=== PATIENT | female | born 1980 ===

== ENCOUNTER 2018-02-22 09:56 | Emergency (ER) | payer SELFPAY ==
[2018-02-22 10:14] VITALS: BP 115/73; PULSE 87; RESP 18; TEMP 98.7; O2SAT 100
--- NOTE | 2018-02-22 10:47 | C.PDOC ---
History Of Present Illness 37 y/o female currently 7.5 weeks presents to ED for further evaluation of . Patient states she had an ultrasound on 02/19 that showed no cardiac activity. Patient reports mild suprapubic pain and denies fever, chills, dysuria, vaginal bleeding, back pain or any other complaints at this time. Time Seen by Provider: 02/22/18 10:37 Chief Complaint (Nursing): Medical Clearance History Per: Patient History/Exam Limitations: no limitations Onset/Duration Of Symptoms: Days Current Symptoms Are (Timing): Still Present Quality Of Discomfort: "Pain" Past Medical History Reviewed: Historical Data, Nursing Documentation, Vital Signs Vital Signs: Last Vital Signs Temp 98.7 F 02/22/18 10:12 Pulse 87 02/22/18 10:12 Resp 18 02/22/18 10:12 BP 115/73 02/22/18 10:12 Pulse Ox 100 02/22/18 10:12 - Medical History PMH: No Chronic Diseases Surgical History: No Surg Hx Family History: States: No Known Family Hx - Social History Hx Alcohol Use: No Hx Substance Use: No - Immunization History Hx Tetanus Toxoid Vaccination: No Hx Influenza Vaccination: No Hx Pneumococcal Vaccination: No Review Of Systems Constitutional: Negative for: Fever, Chills Gastrointestinal: Positive for: Abdominal Pain. Negative for: Nausea, Vomiting, Diarrhea Genitourinary: Negative for: Dysuria, Vaginal Bleeding Skin: Negative for: Rash Physical Exam - Physical Exam Appears: Non-toxic, No Acute Distress Skin: Warm, Dry, No Rash Head: Atraumatic, Normacephalic Eye(s): bilateral: Normal Inspection Oral Mucosa: Moist Neck: Normal ROM, Supple Cardiovascular: Rhythm Regular Respiratory: Normal Breath Sounds, No Rales, No Rhonchi, No Wheezing Gastrointestinal/Abdominal: Soft, No Tenderness, No Guarding, No Rebound Back: No CVA Tenderness Neurological/Psych: Oriented x3, Normal Speech, Normal Cognition ED Course And Treatment O2 Sat by Pulse Oximetry: 100 (RA) Pulse Ox Interpretation: Normal Medical Decision Making Medical Decision Making: Impression: missed AB Progress: 1053 spoke with [facility] Chan who reports patient has Missed AB. Per Dr. Randolph he requests to contact hospitalist OB for possible D&C. [address] Marty DYSON director of environmental services to discuss case and she states there is no emergency at this time, patient stable and can schedule elective D&C outpatient Dispo: Patient remained well with stable vital signs and in no distress. I explained to the patient results of her US and the plan for discharge and to schedule outpatient D&C if desired or opt for miscarriage at home. Patient understands and will follow up with clinic and also contact OB for procedure. Disposition Counseled Patient/Family Regarding: Diagnosis, Need For Followup - Disposition Referrals: Ricardo Aquino MD [Staff Provider] - [facility] [Outside] Disposition: HOME/ ROUTINE Disposition Time: 11:23 Condition: GOOD Additional Instructions: Your ultrasound shows you have missed and will need to contact an OB to schedule an elective D&C procedure outpatient. Please use [employer] service for any assistance in finding an OB in your area [phone]. You are also able to call any doctors on the list provided. Instructions: Miscarriage (DC) Forms: [employer] (Israeli) - POA Present On Arrival: None - Clinical Impression Clinical Impression: Missed - PA / BOTTOMING MACHINE OPERATOR / Resident Statement MD/DO has reviewed & agrees with the documentation as recorded. - Scribe Statement The provider has reviewed the documentation as recorded by the Nusratibjeniffer Amaya All medical record entries made by the Nusratibjeniffer were at my direction and personally dictated by me. I have reviewed the chart and agree that the record accurately reflects my personal performance of the history, physical exam, medical decision making, and the department course for this patient. I have also personally directed, reviewed, and agree with the discharge instructions and disposition.
== END 2018-02-22 11:30 | disposition home or self-care (01) ==
LOC: C.ER 09:56
DX: O02.1 Missed abortion (principal)

== ENCOUNTER 2018-03-05 09:59 | Emergency (ER) | payer SELFPAY ==
[2018-03-05 10:02] VITALS: BMI 23.8
[2018-03-05 10:04] VITALS: O2SAT 100
[2018-03-05 11:22] LABS: HCG,QUALITATIVE URINE POSITIVE (NEGATIVE)
[2018-03-05 11:24] LABS: SQUAMOUS EPITHIAL 12 /hpf (0-5); URINE BACTERIA RARE (<OCC); URINE BILIRUBIN NEGATIVE (NEGATIVE); URINE BLOOD 2+ (NEGATIVE); URINE CLARITY Hazy (Clear); URINE COLOR Yellow (YELLOW); URINE GLUCOSE (UA) NORMAL (Normal); URINE LEUKOCYTE ESTERASE TRACE Leu/uL (Negative); URINE PROTEIN NEGATIVE (NEGATIVE); URINE UROBILINOGEN NORMAL mg/dL (0.2-1.0)
--- NOTE | 2018-03-05 12:33 | C.PDOC ---
History Of Present Illness 37-year-old Ab2 female presents to the ED complaining of persistent vaginal bleeding. Patient states she was approximately ?8-10 weeks . She developed lower abdominal cramping and vaginal bleeding 2 weeks ago. Patient was seen here on 02/19/18 for similar symptoms, had bloodwork and US showing no heart tones. Today she noticed a large clot came out, prompting her to return to the ED. Denies any fever, dizziness, chest pain, SOB, nausea, or vomiting. She reports the bleeding otherwise has not been overly heavy. Time Seen by Provider: 03/05/18 10:34 Chief Complaint (Nursing): Female Genitourinary History Per: Patient History/Exam Limitations: no limitations Onset/Duration Of Symptoms: Days Current Symptoms Are (Timing): Still Present Abnormal Vaginal Bleeding: Yes : 7 Para: 4 Miscarriage: 2 Past Medical History Reviewed: Historical Data, Nursing Documentation, Vital Signs Vital Signs: Last Vital Signs Temp 97.4 F L 03/05/18 10:02 Pulse 79 03/05/18 10:02 Resp 16 03/05/18 10:02 BP 109/71 03/05/18 10:02 Pulse Ox 100 03/05/18 10:02 Family History: States: No Known Family Hx - Social History Hx Alcohol Use: No Hx Substance Use: No - Immunization History Hx Tetanus Toxoid Vaccination: No Hx Influenza Vaccination: No Hx Pneumococcal Vaccination: No Review Of Systems Except As Marked, All Systems Reviewed And Found Negative. Constitutional: Negative for: Fever, Chills, Weakness Respiratory: Negative for: Shortness of Breath Gastrointestinal: Negative for: Nausea, Vomiting, Diarrhea Genitourinary: Positive for: Vaginal Bleeding. Negative for: Dysuria, Frequency Skin: Negative for: Rash Neurological: Negative for: Dizziness Physical Exam - Physical Exam Appears: Non-toxic, No Acute Distress Skin: Warm, Dry, No Rash Head: Atraumatic, Normacephalic Eye(s): bilateral: Normal Inspection, PERRL, EOMI Oral Mucosa: Moist Neck: Normal ROM, Supple Chest: Symmetrical, No Tenderness Cardiovascular: Rhythm Regular, No Friction Rub, No Murmur Respiratory: Normal Breath Sounds, No Accessory Muscle Use, No Wheezing Gastrointestinal/Abdominal: Soft, No Tenderness, No Distention Back: Normal Inspection, No CVA Tenderness Extremity: Normal ROM, No Tenderness, No Swelling Extremity: Bilateral: Atraumatic, Normal Color And Temperature, Normal ROM Pulses: Left Dorsalis Pedis: Normal, Right Dorsalis Pedis: Normal Neurological/Psych: Oriented x3, Normal Speech, Normal Motor Gait: Steady ED Course And Treatment O2 Sat by Pulse Oximetry: 100 (RA) Pulse Ox Interpretation: Normal - CT Scan/US Transvaginal US Other Rad Studies (CT/US): Read By Radiologist, Radiology Report Reviewed CT/US Interpretation: Accession No. : [id number]. Patient Name / ID : ISI ESPOSITO S / [id number]. Exam Date : 03/05/2018 13:12:00 ( Approved ). Study Comment : Sex / Age : F / 37Y. Creator : Marv Ortiz MD. Dictator : Marv Ortiz MD. Trim Mechanic : Recording Studio Set Up Worker : Marv Ortiz MD. Approver2 : Report Date : 03/05/2018 14:40:15. My Comment : . Date of service: 03/05/2018. HISTORY: vag bleed, preg, hx of abort r/o retained products. COMPARISON: None available. TECHNIQUE: Transabdominal and transvaginal. FINDINGS: UTERUS: Measures 9.7 x 5.2 x 7.2 cm. Normal in size and appearance. No fibroid or other mass lesion seen. ENDOMETRIUM: Measures 10 mm in diameter. Within the endometrial cavity, there is a rounded echogenic mass measuring 7 x 9 x 10 mm with no demonstrable vascularity. Possible endometrial polyp. Recommend further evaluation with hysterosonography or hysteroscopy. CERVIX: No cervical abnormality identified. RIGHT OVARY: Measures 3.3 x 2.7 x 3.7 cm. No solid mass. Normal flow. Simple cyst, 1.5 x 2.0 x 2.4 cm, presumed physiologic. LEFT OVARY: Measures 2.7 x 2.1 x 2.9 cm. No solid mass. Normal flow. FREE FLUID: No significant free fluid noted. OTHER FINDINGS: None. IMPRESSION: Rounded echogenic structure within the endometrial cavity suspicious for endometrial polyp. Consider further evaluation with hysterosonography. Alternatively, this could be evaluated with hysteroscopy. No other significant abnormality. Medical Decision Making Medical Decision Making: Old records reviewed: Patient was seen here on 02/19/18 at which time Beta-HCG was 1321.10 Initial Plan: * Tylenol PO * Repeat beta-HCG * Transvag/pelvis US Labs reviewed: Beta-HCG has decreased to 149.28 Ultrasound results discussed with patient. On re-exam, the patient reports improvement of symptoms. Lungs are CTA, heart is RRR, abdomen is soft, non-tender and tolerating PO well. Patient is ambulatory in the ED with steady gait. Follow up with the medical doctor within 1-2 days, Return if worsened, The case was discussed with Dr. Blank (OBGYN oncall) who states that the results are consistent with , patient can be discharged home, and that there are no contents left within the uterus. States to prescribe Methergine for 3 days and to follow up with her OBGYN within 1-2 days without fail. Disposition - Disposition Referrals: [facility] [Outside] Disposition: HOME/ ROUTINE Disposition Time: 14:00 Condition: STABLE Additional Instructions: Follow up with the OBGYN within 1-3 days without fail. Return if worsened. Prescriptions: Ibuprofen [Motrin Tab] 800 mg PO TID #20 tab Methylergonovine [Methergine] 0.2 mg PO Q4 #6 tab Instructions: Miscarriage Forms: [employer] (Telugu) - Clinical Impression Clinical Impression: Spontaneous - PA / BUSINESS SYSTEMS ANALYST / Resident Statement MD/DO has reviewed & agrees with the documentation as recorded. - Scribe Statement The provider has reviewed the documentation as recorded by the Scribe Loly Medina All medical record entries made by the Scribe were at my direction and personally dictated by me. I have reviewed the chart and agree that the record accurately reflects my personal performance of the history, physical exam, medical decision making, and the department course for this patient. I have also personally directed, reviewed, and agree with the discharge instructions and disposition.
[2018-03-05 14:20] VITALS: BP 102/74; PULSE 68; RESP 18; TEMP 98.2
--- NOTE | 2018-03-05 14:44 | US ---
Date of service: 03/05/2018 HISTORY: vag bleed, preg, hx of abort r/o retained products COMPARISON: None available. TECHNIQUE: Transabdominal and transvaginal FINDINGS: UTERUS: Measures 9.7 x 5.2 x 7.2 cm. Normal in size and appearance. No fibroid or other mass lesion seen. ENDOMETRIUM: Measures 10 mm in diameter. Within the endometrial cavity, there is a rounded echogenic mass measuring 7 x 9 x 10 mm with no demonstrable vascularity. Possible endometrial polyp. Recommend further evaluation with hysterosonography or hysteroscopy. CERVIX: No cervical abnormality identified. RIGHT OVARY: Measures 3.3 x 2.7 x 3.7 cm. No solid mass. Normal flow. Simple cyst, 1.5 x 2.0 x 2.4 cm, presumed physiologic. LEFT OVARY: Measures 2.7 x 2.1 x 2.9 cm. No solid mass. Normal flow. FREE FLUID: No significant free fluid noted. OTHER FINDINGS: None. IMPRESSION: Rounded echogenic structure within the endometrial cavity suspicious for endometrial polyp. Consider further evaluation with hysterosonography. Alternatively, this could be evaluated with hysteroscopy. No other significant abnormality.
== END 2018-03-05 15:38 | disposition home or self-care (01) ==
LOC: C.ER 09:59
DX: O03.9 Complete or unspecified spontaneous abortion without complication (principal)

== ENCOUNTER 2018-03-22 09:39 | Day surgery (SDC) | payer SELFPAY ==
[2018-03-22 10:32] VITALS: O2SAT 100
[2018-03-22] MEDS ORDERED: Midazolam 2 MG/2 ML VIAL ONE (10:48)
[2018-03-22] MEDS ORDERED: Propofol 10 mg/ml Inj (20 ML) ONE (10:48)
[2018-03-22] MEDS ORDERED: HYDROmorphone 0.5 mg/0.5 ml ISec IVP PRN (11:26)
[2018-03-22 12:51] VITALS: BP 101/52; PULSE 68; RESP 18; TEMP 98
--- NOTE | 2018-03-23 12:16 | OP ---
PROCEDURE DATE: 03/22/2018 PREOPERATIVE DIAGNOSIS: A 38-year-old 5, para 4 with endometrial polyp . POSTOPERATIVE DIAGNOSIS: A 38-year-old 5, para 4 with endometrial polyp . PROCEDURE: MyoSure dilatation and curettage, hysteroscopy. SURGEON: Ricardo Aquino MD SALES LEDGER CLERK: None. TYPE OF ANESTHESIA: General. ANESTHESIA ADMINISTERED BY: Dr. Ceballos. COMPLICATIONS: None. DESCRIPTION OF PROCEDURE: After informed consent was obtained, the patient was brought into the operating room, placed on the table where general anesthesia was administered. Once the anesthesia was given, the patient was prepped and draped in the normal sterile fashion. Examination revealed uterus to be uterus revealed it to be 7 weeks size. No pelvic or adnexal masses. Anterior lip of the cervix was grasped with a tenaculum. Gentle dilatation of the cervix was done. It was found that there was a polyp on the posterior wall of the uterus. Picture was taken. MyoSure was used to take out the polyp. Polyp was sent to pathology. Sharp curettage of the endometrial wall was taken. It was then sent to pathology. After that, it was ECC and was sent to pathology. Tenaculum was taken out. The patient tolerated the procedure well. Lap, sponge, and instrument counts were correct x2. Ricardo Aquino MD
== END 2018-03-22 12:58 | disposition home or self-care (01) ==
LOC: C.SDS 09:39
PROVIDERS: ATTEND Obstetrics & Gynecology
DX: N84.0 Polyp of corpus uteri (principal)
CPT/HCPCS: 58558; 88305; J2250; J2704; J3010